=== PATIENT | female | born 1985 | race Caucasian/White ===

== ENCOUNTER → 2020-10-07 | Outpatient (CLI) | payer BC ==
[2020-10-07 15:18] VITALS: BP 130/90; PULSE 71; RESP 16; TEMP 98.4
--- NOTE | 2020-10-07 15:59 | P.GSHP ---
History of Present Illness H&P Date: 10/07/20 Chief Complaint: Abnormal left breast ultrasound Joyce is a 35-year-old white female seen in consultation for Dr. Cavazos regarding a recent ultrasound of the left breast which revealed a new 1:00 lesion being a complex cyst versus a small fibroadenoma. She has had a stable hypoechoic lesion at 12:00 measuring 5 x 6 x 3 mm since 2017. She has not had any biopsies of this. The patient about 5 years ago noted a buzzing like sensation in the upper outer quadrant of the left breast, at that time it was felt this was fibrocystic in nature and she should be followed closely. Secondary to COVID there was a delay in obtaining surveillance ultrasound of the left breast and this was finally performed on 06/24/2020. At that time the area of presumed fibroadenoma was stable at 12:00 region however minimally complex cyst versus small fibroadenoma at 1:00 was noted. Recommendation was for 6 month follow-up. The films however have been reviewed with Dr. Maria from radiology who suggested an ultrasound-guided core biopsy of the 1:00 lesion would be appropriate. Patient states that she has lumpy breasts bilaterally but she has not noted any new specific masses or nodules that she is concerned about. She is not complaining of any nipple discharge or skin changes. She states she knows that if drinking caffeine it causes discomfort in both breasts. Caffeine: 1 cup/day nicotine: Negative Chocolate: Negative Family history: father: prostate Hormonal history: Menarche: 11 , age at : 24, breast fed: yes periods regular uses BCP BCP: 17 years hormones: none Surgical history: Tonsillectomy Multiple knee arthroscopies Medical History: Mild intermittent asthma Social history: Nicotine: Negative Alcohol: Negative Drugs: Negative - Constitutional Constitutional: Denies chills, Denies fever - EENT Eyes: denies blurred vision, denies pain Ears, nose, mouth and throat: Denies headache, Denies sore throat - Breasts Breasts: bilateral: as per HPI - Cardiovascular Cardiovascular: Denies chest pain, Denies shortness of breath - Respiratory Respiratory: Denies cough, Denies 7 - Gastrointestinal Gastrointestinal: Denies abdominal pain, Denies diarrhea, Denies nausea, Denies vomiting - Genitourinary (Female) Genitourinary: Denies dysuria, Denies hematuria - Menstruation Comment: cycle regulated on BCP Menstruation: Reports period normal - Musculoskeletal Comment: 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 Musculoskeletal: Denies myalgias - Integumentary Integumentary: Denies pruritus, Denies rash - Neurological Neurological: Denies numbness, Denies weakness - Psychiatric Psychiatric: Denies anxiety, Denies depression - Endocrine Endocrine: Denies fatigue, Denies weight change - Hematologic/Lymphatic Comment: none - Allergic/Immunologic Allergic/Immunologic: Reports as per HPI Past Medical History History of Any Multi-Drug Resistant Organisms: None Reported Smoking Status: Never smoker Medications and Allergies Home Medications Medication Instructions Recorded Confirmed Type Norgestimate-Ethinyl Estradiol 1 tablet PO DAILY 10/07/20 10/07/20 History [Sprintec 28 Day Tablet] Allergies Allergy/AdvReac Type Severity Reaction Status Date / Time morphine AdvReac Intermediate Throat Unverified 10/07/20 15:06 swelling Surgical - Exam Vital Signs Temp Pulse Resp BP Pulse Ox 98.4 F 71 16 130/90 100 10/07/20 15:08 10/07/20 15:08 10/07/20 15:08 10/07/20 15:08 10/07/20 15:08 BMI 24.6 - General no distress - Eyes normal ocular movement - ENT normal pinna, normal nares - Neck no masses, trachea midline - Respiratory normal expansion, normal respiratory effort, clear to auscultation - Cardiovascular Rhythm: regular Heart Sounds: normal: S1, S2 - Abdomen Abdomen: soft, non tender, no guarding, no rigid, no rebound - Integumentary normal turgor - Neurologic no disoriented, no combative - Musculoskeletal normal gait - Psychiatric oriented to time, oriented to person, oriented to place, speech is normal, memory intact breast exam: BRA: 36D inspection: Bilateral grade 1/2 ptosis Palpation: Right breast: Multi-positional exam fibrocystic breast changes no dominant masses or nodules of concern Right axilla: No adenopathy of concern Left breast: Multi-positional exam denser breast tissue than on the right with increased nodularity posterior to the nipple areolar complex no other discrete masses or nodules of concern Left axilla: No adenopathy of concern Results Ultrasound reviewed with Dr. Maria/'s recommendation is for ultrasound-guided core biopsy of the lesion at 1:00 in the left breast Assessment and Plan Assessment: Impression: 1. Fibrocystic breast disease 2. Ultrasound abnormality left breast at 1:00 and 12:00 12:00 lesion has been stable however patient is concerned and would like to have a definitive diagnosis 3. Asymmetry of the breast with more breast parenchyma in the left than on the right 4. Have recommended abstaining from caffeinated products Plan: 1. Bilateral mammogram 2. Ultrasound of the right breast 3. Ultrasound core biopsy of one o'clock and 12:00 lesion on the left and further recommendation after the bilateral mammogram and ultrasound of the right breast We believe the lesion at 12:00 is a fibroadenoma however the patient would prefer to have a biopsy and no definitively. Cc: Ajay Verdin
== END ==
LOC: WWCWWP 14:36
PROVIDERS: ATTEND Surgery
DX: N60.11 Diffuse cystic mastopathy of right breast (principal); N64.89 Other specified disorders of breast; J45.20 Mild intermittent asthma, uncomplicated

== ENCOUNTER → 2020-10-27 | Outpatient (CLI) | payer BC ==
--- NOTE | 2020-10-28 08:31 | MM ---
Reason for exam: additional evaluation requested from prior study. History: Taking hormonal contraceptives for 16 years beginning at age 16. Physical Findings: Nurse Summary: nodule in the right breast at 1 o'clock and nodule in the left breast at 12-1 o'clock (nurse TM). MG 3D Diag Mammo W/Cad DESTINEY Bilateral CC and MLO view(s) were taken. The breast tissue is extremely dense which could obscure a lesion on mammography. Bilateral axillary lymph node, benign appearing. These results were verbally communicated with the patient and result sheet given to the patient on 10/27/20. ASSESSMENT: Incomplete: need additional imaging evaluation, BI-RAD 0 RECOMMENDATION: Ultrasound of both breasts. (right whole breast, including palpable, left repeat and palpable 12-1 o'clock)
--- NOTE | 2020-10-28 08:34 | USB ---
Reason for exam: additional evaluation requested from abnormal screening. History: Taking hormonal contraceptives for 16 years beginning at age 16. US Breast Limited BILAT Technologist: Danette Calloway Right complete breast ultrasound includes all four quadrants, the retroareolar region and axilla. Finding demonstrates a 0.7 x 0.6 x 0.5cm cystic lesion at 11 o'clock, complicated complex cyst with partial septation, benign appearing. Left limited breast ultrasound including focal area of concern, retroareolar and axilla demonstrates a 0.5 x 0.5 x 0.3cm probably complex cyst verus fibroadenoma at 12 o'clock, a 0.5 x 0.4 x 0.3cm probably complex cyst versus fibroadenoma at 12 o'clock, a 0.7 x 0.6 x 0.3cm cystic simple cyst at 1 o'clock and a 2.5 x 1.1 x 0.9cm lymph node at the axilla, benign appearing, reactive. These results were verbally communicated with the patient and result sheet given to the patient on 10/27/20. ASSESSMENT: Probably benign, BI-RAD 3 RECOMMENDATION: Ultrasound of the left breast in 6 months.
== END | disposition home or self-care (01) ==
LOC: RADMAMWWP 14:14
PROVIDERS: ATTEND Surgery
DX: N60.01 Solitary cyst of right breast (principal); N60.02 Solitary cyst of left breast; N63.10 Unspecified lump in the right breast, unspecified quadrant; N63.20 Unspecified lump in the left breast, unspecified quadrant
CPT/HCPCS: 77062; 77066

== ENCOUNTER → 2020-11-04 | Outpatient (CLI) | payer BC ==
[2020-11-04 08:54] VITALS: BP 136/80; PULSE 61; RESP 16; TEMP 98.3
--- NOTE | 2020-11-04 09:27 | P.PN ---
Subjective Progress Note Date: 11/04/20 Joyce is a 35-year-old white female seen in consultation for Dr. Cavazos regarding a recent ultrasound of the left breast which revealed a new 1:00 lesion being a complex cyst versus a small fibroadenoma. She has had a stable hypoechoic lesion at 12:00 measuring 5 x 6 x 3 mm since 2017. She has not had any biopsies of this. The patient about 5 years ago noted a buzzing like sensation in the upper outer quadrant of the left breast, at that time it was felt this was fibrocystic in nature and she should be followed closely. Secondary to COVID there was a delay in obtaining surveillance ultrasound of the left breast and this was finally performed on 06/24/2020. At that time the area of presumed fibroadenoma was stable at 12:00 region however minimally complex cyst versus small fibroadenoma at 1:00 was noted. Recommendation was for 6 month follow-up. The films however have been reviewed with Dr. Maria from radiology who suggested an ultrasound-guided core biopsy of the 1:00 lesion would be appropriate. Patient states that she has lumpy breasts bilaterally but she has not noted any new specific masses or nodules that she is concerned about. She is not complaining of any nipple discharge or skin changes. She states she knows that if drinking caffeine it causes discomfort in both breasts. A bilateral mammogram was performed and [id number]. This was incomplete and ultrasound of both breasts were performed. On the ultrasound of both breast the right breast revealed a 0.7 x 0.6 cm cystic lesion at 11:00 The left breast revealed a 0.5 x 0.5 probably complex cyst versus fibroadenoma at 12:00, 0.5 x 0.4 cm complex cyst versus fibroadenoma at 12:00, 30.7 x 0.6 cm cystic lesion at 1:00 and a 2.5 x 1.1 cm lymph node in the axilla which appeared to be benign. This was felt to be probably benign BIRADS 3 and ultrasound of the left breast in 6 months was recommended after review of the most recent radiographs. Caffeine: 1 cup/day nicotine: Negative Chocolate: Negative Family history: father: prostate Hormonal history: Menarche: 11 , age at : 24, breast fed: yes periods regular uses BCP BCP: 17 years hormones: none Surgical history: Tonsillectomy Multiple knee arthroscopies Medical History: Mild intermittent asthma Social history: Nicotine: Negative Alcohol: Negative Drugs: Negative - Constitutional Constitutional: Denies chills, Denies fever - EENT Eyes: denies blurred vision, denies pain Ears, nose, mouth and throat: Denies headache, Denies sore throat - Breasts Breasts: bilateral: as per HPI - Cardiovascular Cardiovascular: Denies chest pain, Denies shortness of breath - Respiratory Respiratory: Denies cough - Gastrointestinal Gastrointestinal: Denies abdominal pain, Denies diarrhea, Denies nausea, Denies vomiting - Genitourinary (Female) Genitourinary: Denies dysuria, Denies hematuria - Menstruation Comment: cycle regulated on BCP Menstruation: Reports period normal - Musculoskeletal Comment: 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 These were done on and read by DR. Durand from radiology. Dr. Durand at this time is not recommending any biopsy. The patient understands this and is willing to have close surveillance at this time. She will be seen again in 3 months for a physical examination. This is based on the fact that on her last examination there was some slight increased nodularity posterior to the left nipple areolar complex on the physical examination. I have personally reviewed the radiographs with Dr. Durand. At this time she does not recommend a biopsy. I discussed this with the patient in detail. She understands that she will have a repeat physical exam at 3 months and a repeat left breast ultrasound at 6 months with physician exam at that time. If anything changes in the interim she will see us sooner. CC: Dr. Cavazos, Dr. Moss Objective - Vital Signs Vital signs: Vital Signs Temp 98.3 F 11/04/20 08:52 Pulse 61 11/04/20 08:52 Resp 16 11/04/20 08:52 BP 136/80 11/04/20 08:52 Pulse Ox 100 11/04/20 08:52 Intake & Output 11/03/20 11/04/20 11/04/20 18:59 06:59 18:59 Weight 67.132 kg
== END ==
LOC: WWCWWP 08:43
PROVIDERS: ATTEND Surgery
DX: N63.20 Unspecified lump in the left breast, unspecified quadrant (principal); J45.20 Mild intermittent asthma, uncomplicated; Z88.5 Allergy status to narcotic agent

== ENCOUNTER → 2021-02-03 | Outpatient (CLI) | payer BC ==
[2021-02-03 10:59] VITALS: BP 121/79; PULSE 86; RESP 16; TEMP 98.2
--- NOTE | 2021-02-03 11:29 | P.PN ---
Subjective Progress Note Date: 02/03/21 Principal diagnosis: Fibrocystic breast changes Joyce is a 35-year-old white female seen in consultation for Dr. Cavazos regarding a recent ultrasound of the left breast which revealed a new 1:00 lesion being a complex cyst versus a small fibroadenoma. She has had a stable hypoechoic lesion at 12:00 measuring 5 x 6 x 3 mm since 2017. She has not had any biopsies of this. The patient about 5 years ago noted a buzzing like sensation in the upper outer quadrant of the left breast, at that time it was felt this was fibrocystic in nature and she should be followed closely. Secondary to COVID there was a delay in obtaining surveillance ultrasound of the left breast and this was finally performed on 06/24/2020. At that time the area of presumed fibroadenoma was stable at 12:00 region however minimally complex cyst versus small fibroadenoma at 1:00 was noted. Recommendation was for 6 month follow-up. The films however have been reviewed with Dr. Maria from radiology who suggested an ultrasound-guided core biopsy of the 1:00 lesion would be appropriate. Patient states that she has lumpy breasts bilaterally but she has not noted any new specific masses or nodules that she is concerned about. She is not complaining of any nipple discharge or skin changes. She states she knows that if drinking caffeine it causes discomfort in both breasts. A bilateral mammogram was performed and [id number]. This was incomplete and ultrasound of both breasts were performed. On the ultrasound of both breast the right breast revealed a 0.7 x 0.6 cm cystic lesion at 11:00 The left breast revealed a 0.5 x 0.5 probably complex cyst versus fibroadenoma at 12:00, 0.5 x 0.4 cm complex cyst versus fibroadenoma at 12:00, 30.7 x 0.6 cm cystic lesion at 1:00 and a 2.5 x 1.1 cm lymph node in the axilla which appeared to be benign. This was felt to be probably benign BIRADS 3 and ultrasound of the left breast in 6 months was recommended after review of the most recent radiographs. 9--21 The patient's biopsy was canceled by Dr. Astorga from radiology as she felt that she did not need to have any biopsy performed. However, she did have some slight increased nodularity posterior to the left nipple areolar complex and physical examination repeat physical exam was recommended. She has not noted any lumps masses or nodules in her breasts for which she is concerned. She has not had any recent new radiographic studies preformed. She is not complaining of any new breast pains. She is not complaining of any nipple discharge or skin changes. Patient's last menstrual period was approximately 3 weeks ago. Her breasts get full and dense or right before her menstrual periods starts. Caffeine: 1 cup/day nicotine: Negative Chocolate: Negative Family history: father: prostate Hormonal history: Menarche: 11 , age at : 24, breast fed: yes periods regular uses BCP BCP: 17 years hormones: none Surgical history: Tonsillectomy Multiple knee arthroscopies Medical History: Mild intermittent asthma Social history: Nicotine: Negative Alcohol: Negative Drugs: Negative - Constitutional Constitutional: Denies chills, Denies fever - EENT Eyes: denies blurred vision, denies pain Ears, nose, mouth and throat: Denies headache, Denies sore throat - Breasts Breasts: bilateral: as per HPI - Cardiovascular Cardiovascular: Denies chest pain, Denies shortness of breath - Respiratory Respiratory: Denies cough - Gastrointestinal Gastrointestinal: Denies abdominal pain, Denies diarrhea, Denies nausea, Denies vomiting - Genitourinary (Female) Genitourinary: Denies dysuria, Denies hematuria - Menstruation Comment: cycle regulated on BCP Menstruation: Reports period normal - Musculoskeletal Comment: 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 Musculoskeletal: Denies myalgias - Integumentary Integumentary: Denies pruritus, Denies rash - Neurological Neurological: Denies numbness, Denies weakness - Psychiatric Psychiatric: Denies anxiety, Denies depression - Endocrine Endocrine: Denies fatigue, Denies weight change - Hematologic/Lymphatic Comment: none - Allergic/Immunologic Allergic/Immunologic: Reports as per HPI Objective - Vital Signs Vital signs: Vital Signs Temp 98.2 F 02/03/21 10:56 Pulse 86 02/03/21 10:56 Resp 16 02/03/21 10:56 BP 121/79 02/03/21 10:56 Pulse Ox 98 02/03/21 10:56 Intake & Output 02/02/21 02/03/21 02/03/21 18:59 06:59 18:59 Weight 65.771 kg - Exam BMI 24.1 - Constitutional General appearance: Present: cooperative - EENT Eyes: Present: EOMI ENT: Present: hearing grossly normal - Neck Neck: Present: normal ROM - Respiratory Respiratory: bilateral: CTA - Cardiovascular Rhythm: regular Heart sounds: normal: S1, S2 - Integumentary Integumentary: Present: normal turgor - Musculoskeletal Musculoskeletal: Present: gait normal - Psychiatric Psychiatric: Present: A&O x's 3, appropriate affect, intact judgment & insight - Additional findings Additional findings: Breast Exam: BRA: 36D related to the width inspection: bilateral grade 2 ptosis palpation: right breast: Multi-positional exam fibrocystic changes, no dominant masses or nodules of concern Right axilla: No adenopathy of concern Left breast: Multi-positional exam fibrocystic changes without dominant masses or nodules of concern, particular attention to the area behind the nipple areolar complex reveals some fullness but it is believed to be fibrocystic breast change Left axilla: No adenopathy of concern Assessment and Plan Assessment: Impression: Fibrocystic breast changes Plan: Left breast ultrasound particular attention to retroareolar area in April 2021 with physician exam to follow discussed avoiding caffeine CC: Dr. Cavazos, Dr. Moss
== END ==
LOC: WWCWWP 10:41
PROVIDERS: ATTEND Surgery
DX: N60.12 Diffuse cystic mastopathy of left breast (principal); J45.20 Mild intermittent asthma, uncomplicated; Z88.5 Allergy status to narcotic agent

== ENCOUNTER → 2021-05-01 | Outpatient (CLI) | payer BC ==
--- NOTE | 2021-05-01 10:47 | USB ---
Reason for exam: follow-up at short interval from prior study. History: Family history of breast cancer in paternal aunt. Taking hormonal contraceptives for 16 years beginning at age 16. Physical Findings: Nurse Summary: 9 o'clock 0.5cm moble palpable left breast, left breast 12 o'clock generalized lumpiness (nurse isidro). US Breast Limited LT Technologist: Danette Calloway Left limited breast ultrasound including focal area of concern, retroareolar and axilla demonstrates a 0.4 x 0.3 x 0.2cm lesion at 2 o'clock and a 0.6cm lymph node at the axilla cortex 3.4mm. These results were verbally communicated with the patient and result sheet given to the patient on 05/01/21. ASSESSMENT: Probably benign, BI-RAD 3 RECOMMENDATION: Ultrasound of the left breast in 6 months. Manage patient on a clinical basis.
== END | disposition home or self-care (01) ==
LOC: RADUSWWP 09:29
PROVIDERS: ATTEND Surgery
DX: N64.89 Other specified disorders of breast (principal); Z80.3 Family history of malignant neoplasm of breast

== ENCOUNTER → 2021-11-15 | Outpatient (CLI) | payer BC ==
--- NOTE | 2021-11-15 08:38 | USB ---
Reason for Exam: Follow-up at short interval from prior study. Last mammogram was performed 1 year(s) and 1 month(s) ago. Patient History: Menarche at age 11. First Full-Term at age 24. Currently using Hormonal Contraceptives, beginning at age 16 for 16 years. Paternal aunt had breast cancer. Last menstrual period: 11/15/2021 Risk Values: Linda 5 year model risk: 0.5%. NCI Lifetime model risk: 11.2%. Prior Study Comparison: 10/27/2020 Bilateral Diagnostic Mammogram, [facility]. Tissue Density: The breast tissue is heterogeneously dense. This may lower the sensitivity of mammography. Findings: Analyzed By CAD. Mammogram Stable benign-appearing bilateral axillary lymph nodes. No new distortion or worrisome cluster of microcalcifications. Technique: Method: Targeted. Findings: The upper section of the breast of the left breast and the axilla of the left breast were scanned. Finding 1: Simple cyst. Laterality: Left. Size 6 x 4 x 6 mm. 12 O'clock 2 cm cm from nipple. Shape: Circumscribed. Margin: Circumscribed (Well-Defined or Sharply-Defined). Finding 2: Lymph Nodes - Axillary findings. Laterality: Left. Region: Axilla. Benign thin-walled cyst 12:00 position incidentally increased in size. Stable appearing left axillary lymph node with eccentric cortical thickening and hypervascularity possible reactive node. No new solid or cystic masses or fluid collections. Overall Assessment: Benign, BI-RAD 2 Assessment: MG 3D diag mammo w/cad DESTINEY - Bilateral: Benign, BI-RAD 2. US breast limited LT - Left: Benign, BI-RAD 2. Management: Screening Mammogram of both breasts in 1 year. A clinical breast exam by your physician is recommended on an annual basis and results should be correlated with mammographic findings. Results were given to the patient verbally at the time of exam. Electronically signed and approved by: Jm Diaz M.D.
== END | disposition home or self-care (01) ==
LOC: RADMAMWWP 07:23
PROVIDERS: ATTEND Surgery
DX: N60.02 Solitary cyst of left breast (principal); Z80.3 Family history of malignant neoplasm of breast
CPT/HCPCS: 77062; 77066

== ENCOUNTER → 2021-11-23 | Outpatient (CLI) | payer BC ==
[2021-11-23 15:49] VITALS: BP 132/86; PULSE 61; RESP 16; TEMP 98.1
--- NOTE | 2021-11-23 16:01 | P.PN ---
Subjective Progress Note Date: 11/23/21 Fibrocystic breast changes Joyce is a 35-year-old white female seen in consultation for Dr. Cavazos regarding a recent ultrasound of the left breast which revealed a new 1:00 lesion being a complex cyst versus a small fibroadenoma. She has had a stable hypoechoic lesion at 12:00 measuring 5 x 6 x 3 mm since 2017. She has not had any biopsies of this. The patient about 5 years ago noted a buzzing like sensation in the upper outer quadrant of the left breast, at that time it was felt this was fibrocystic in nature and she should be followed closely. Secondary to COVID there was a delay in obtaining surveillance ultrasound of the left breast and this was finally performed on 06/24/2020. At that time the area of presumed fibroadenoma was stable at 12:00 region however minimally complex cyst versus small fibroadenoma at 1:00 was noted. Recommendation was for 6 month follow-up. The films however have been reviewed with Dr. Maria from radiology who suggested an ultrasound-guided core biopsy of the 1:00 lesion would be appropriate. Patient states that she has lumpy breasts bilaterally but she has not noted any new specific masses or nodules that she is concerned about. She is not complaining of any nipple discharge or skin changes. She states she knows that if drinking caffeine it causes discomfort in both breasts. A bilateral mammogram was performed and [id number]. This was incomplete and ultrasound of both breasts were performed. On the ultrasound of both breast the right breast revealed a 0.7 x 0.6 cm cystic lesion at 11:00 The left breast revealed a 0.5 x 0.5 probably complex cyst versus fibroadenoma at 12:00, 0.5 x 0.4 cm complex cyst versus fibroadenoma at 12:00, 30.7 x 0.6 cm cystic lesion at 1:00 and a 2.5 x 1.1 cm lymph node in the axilla which appeared to be benign. This was felt to be probably benign BIRADS 3 and ultrasound of the left breast in 6 months was recommended after review of the most recent radiographs. 9-3-21 The patient's biopsy was canceled by Dr. Astorga from radiology as she felt that she did not need to have any biopsy performed. However, she did have some slight increased nodularity posterior to the left nipple areolar complex and physical examination repeat physical exam was recommended. She has not noted any lumps masses or nodules in her breasts for which she is concerned. She has not had any recent new radiographic studies preformed. She is not complaining of any new breast pains. She is not complaining of any nipple discharge or skin changes. Patient's last menstrual period was approximately 3 weeks ago. Her breasts get full and dense or right before her menstrual periods starts. 11-23-21 The patient had a bilateral mammogram performed on . This was benign BIRADS 2 and additionally she had an ultrasound of the left breast performed on the same date this revealed a benign thin-walled cyst at the 12 o'clock position incidentally increased in size. Stable-appearing left axillary lymph node was noted. This was overall assessment benign BIRADS 2 screening mammogram of both breasts in 1 year. The patient herself does not feel any new nodules lumps or masses. She is concerned. Caffeine: 1 cup/day nicotine: Negative Chocolate: Negative Family history: father: prostate paternal aunt: breast cancer Hormonal history: Menarche: 11 , age at : 24, breast fed: yes periods regular uses BCP BCP: 15 years hormones: none Surgical history: Tonsillectomy Multiple knee arthroscopies Medical History: Mild intermittent asthma Social history: Nicotine: Negative Alcohol: Negative Drugs: Negative - Constitutional Constitutional: Denies chills, Denies fever - EENT Eyes: denies blurred vision, denies pain Ears, nose, mouth and throat: Denies headache, Denies sore throat - Breasts Breasts: bilateral: as per HPI - Cardiovascular Cardiovascular: Denies chest pain, Denies shortness of breath - Respiratory Respiratory: Denies cough - Gastrointestinal Gastrointestinal: Denies abdominal pain, Denies diarrhea, Denies nausea, Denies vomiting - Genitourinary (Female) Genitourinary: Denies dysuria, Denies hematuria - Menstruation Comment: cycle regulated on BCP Menstruation: Reports period normal - Musculoskeletal Comment: 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 Musculoskeletal: Denies myalgias - Integumentary Integumentary: Denies pruritus, Denies rash - Neurological Neurological: Denies numbness, Denies weakness - Psychiatric Psychiatric: Denies anxiety, Denies depression - Endocrine Endocrine: Denies fatigue, Denies weight change - Hematologic/Lymphatic Comment: none - Allergic/Immunologic Allergic/Immunologic: Reports as per HPI Objective - Vital Signs Vital signs: Vital Signs Temp 98.1 F 11/23/21 15:46 Pulse 61 11/23/21 15:46 Resp 16 11/23/21 15:46 BP 132/86 11/23/21 15:46 Pulse Ox 99 11/23/21 15:46 FiO2 Intake & Output 11/22/21 11/23/21 11/23/21 18:59 06:59 18:59 Weight 68.039 kg - Constitutional General appearance: Present: cooperative - EENT Eyes: Present: EOMI ENT: Present: hearing grossly normal - Neck Neck: Present: normal ROM - Respiratory Respiratory: bilateral: CTA - Cardiovascular Rhythm: regular Heart sounds: normal: S1, S2 - Gastrointestinal General gastrointestinal: Present: soft - Integumentary Integumentary: Present: normal turgor - Musculoskeletal Musculoskeletal: Present: gait normal - Psychiatric Psychiatric: Present: A&O x's 3, appropriate affect, intact judgment & insight - Additional findings Additional findings: Breast Exam: BRA: 34D because of width Inspection: Bilateral grade 2 ptosis Palpation: Right breast: Multiple positional exam fibrocystic changes no discrete dominant masses or nodules of concern Right axilla: No adenopathy of concern Left breast: Multi-positional examination, Particular attention to the retroareolar area does not reveal any discrete lumps masses or nodules of co ncern any place in the breast Left axilla: No adenopathy of concern Assessment and Plan Assessment: Impression: Fibrocystic breast changes Plan: Bilateral mammogram in 1 year with physician exam at that time Patient follow up sooner any questions or concerns CC: DR. Bang
== END ==
LOC: WWCWWP 15:40
PROVIDERS: ATTEND Surgery
DX: N60.11 Diffuse cystic mastopathy of right breast (principal); N60.12 Diffuse cystic mastopathy of left breast; J45.20 Mild intermittent asthma, uncomplicated; Z88.5 Allergy status to narcotic agent